=== PATIENT | female | born 1970 | race African-American/Black ===

== ENCOUNTER 2016-10-30 19:06 | Emergency (ER) | payer OTHER ==
[2016-10-30 19:18] VITALS: BMI 31.8
--- NOTE | 2016-10-30 19:54 | PDOC ---
History of Present Illness - General Chief Complaint: Pain Stated Complaint: STOMACH PAIN Time Seen by Provider: 10/30/16 19:29 History Source: Patient Exam Limitations: No Limitations - History of Present Illness Initial Comments: 10/31/16 00:44 46-year-old female presents to the emergency department complaining of epigastric abdominal discomfort 7 hours. Pain is described as 7/10 sharp intermittent discomfort which radiates to the back going around the right side without fever, chills, nausea, vomiting, dizziness, lightheadedness, headache, weakness diarrhea, chest pain, shortness of breath, flank pains, urinary symptoms. Patient also complaining of 4 weeks of vaginal bleeding and is described as a heavy flow. 10/31/16 00:49 Past History - Past Medical History Allergies/Adverse Reactions: Allergies Allergy/AdvReac Type Severity Reaction Status Date / Time nitrofurantoin Allergy Severe Swelling Verified 10/30/16 19:14 [From Macrobid] Home Medications: Ambulatory Orders Lisinopril [Prinivil -] 40 mg PO DAILY 07/19/15 Anemia: No Asthma: No Cancer: No Cardiac Disorders: No CVA: No COPD: No CHF: No Dementia: No Diabetes: Yes (gestational) GI Disorders: No Disorders: No HTN: Yes Hypercholesterolemia: No Liver Disease: No Seizures: No Thyroid Disease: No - Surgical History Abdominal Surgery: Yes (LAP BAND -2013) Appendectomy: No Cardiac Surgery: No Cholecystectomy: No GI Surgery: Yes (LAP BAND) Lung Surgery: No Neurologic Surgery: No Orthopedic Surgery: No - Reproductive History (#): 5 Para: 1 Spontaneous : 4 - Psycho/Social/Smoking Cessation Hx Anxiety: No Suicidal Ideation: No Smoking Status: Yes Smoking History: Current every day smoker Have you smoked in the past 12 months: No Number of Cigarettes Smoked Daily: 4 Information on smoking cessation initiated: No 'Breaking Loose' booklet given: 10/06/15 Hx Alcohol Use: No Drug/Substance Use Hx: No Substance Use Type: None Hx Substance Use Treatment: No *Physical Exam - Vital Signs Last Vital Signs Temp Pulse Resp BP Pulse Ox 98.4 F 99 H 18 135/81 100 10/30/16 19:10 10/30/16 19:10 10/30/16 19:10 10/30/16 19:10 10/30/16 19:40 ED Treatment Course - LABORATORY CBC & Chemistry Diagram: 10/30/16 20:14 10/30/16 20:14 - RADIOLOGY Radiograph Interpretation: 10/31/16 00:05 US abd: Course liver echotexture, possibly steatosis. Gallbladder sludge. No cholelithiasis or acute cholecystitis. Unremarkable right kidney and visualized aorta and pancreas. No biliary dilatation. 10/31/16 00:46 Enlarged left ovary containing a 2.4 cm dominant follicle, consider further evaluation with ultrasound. Leiomyomatous uterus. Trace physiological free fluid right adnexal. Gastric band device. No bowel obstruction, colitis, diverticulitis or free air. Normal appendix. Unremarkable pancreas and kidneys. Progress Note - Progress Note Progress Note: 0050hrs: Spoke to Dr. Hameed/pt's WATERSHED MANAGER, states to give Provera 10mg 1 tab po qd x7d. Dr. Hameed req pt call her office on Tuesday to schedule a procedure. Medical Decision Making - Medical Decision Making 10/31/16 00:51 Spoke to WATERSHED MANAGER/Dr. Hameed who states rx provera 10mg 1 tab po qd x7d and f/u this week. Pt appears well without dizziness/lightheadedness, weakness. Pt wishes to be d/c vs admission. *DC/Admit/Observation/Transfer Diagnosis at time of Disposition: Vaginal bleeding Anemia Qualifiers: Anemia type: other cause Other causes of anemia: other cause, not classified Qualified Code(s): D64.89 - Other specified anemias Abdominal pain Qualifiers: Abdominal location: epigastric Qualified Code(s): R10.13 - Epigastric pain - Discharge Dispostion Disposition: HOME Condition at time of disposition: Guarded Admit: No - Referrals Referrals: Neville Eid MD [Primary Care Provider] - Maddison Hameed DO [Staff Physician] - - Patient Instructions Printed Discharge Instructions: DI for Vaginal Bleeding, DI for Abdominal Pain- Adult Additional Instructions: Follow up with / your Clerical Car Checker Call Dr. Hameed's office [phone] on Tuesday morning for an immediate appointment You will need to have a procedure done to control your bleeding You will be placed on Provera 10mg 1 tablet a day for 7 days to control the vaginal bleed Increase fluid Rest Return back to the ER for severe/persistent/worsening symptoms
[2016-10-30 20:22] LABS: BASOPHIL 0.6 % (0-2.0); EOSINOPHIL 1.9 % (0-4.5); MCHC 29.6 g/dl (32.0-36.0); MEAN PLT VOLUME 7.4 fl (7.5-11.1); NEUTROPHILS 63.3 % (42.8-82.8); PLATELET COUNT 208 K/MM3 (134-434); RDW 17.1 % (11.6-15.6); WHITE BLOOD COUNT 6.8 K/mm3 (4.0-10.0)
--- NOTE | 2016-10-30 20:26 | PDOC ---
*Physical Exam - Vital Signs Last Vital Signs Temp Pulse Resp BP Pulse Ox 98.4 F 99 H 18 135/81 100 10/30/16 19:10 10/30/16 19:10 10/30/16 19:10 10/30/16 19:10 10/30/16 19:40 ED Treatment Course - LABORATORY CBC & Chemistry Diagram: 10/30/16 20:14 10/30/16 20:14 Medical Decision Making - Medical Decision Making 10/30/16 20:25 Pt seen by Midlevel Provider She is a 46 yo F p/w epigastric pain x 1 week Laboratory Tests 10/30/16 20:14 WBC 6.8 Hgb 7.2 L D Hct 24.3 L D Plt Count 208 D Pt severely anemic Apparently, pt has had 1 month of vaginal bleeding She has had not chest pain, palpitations, dizziness Ancillary studies reviewed 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 At this time, pt does not require transfusion PT denies melanotic stools (?gastritis, ulcer) Pt to follow up with PMD I agree with plan as outlined by Midlevel Provider *DC/Admit/Observation/Transfer Diagnosis at time of Disposition: Anemia, Abdominal pain, Vaginal bleeding - Discharge Dispostion Disposition: HOME - Prescriptions Prescriptions: Medroxyprogesterone Acetate [Provera] 10 mg PO DAILY #7 tablet - Referrals Referrals: Maddison Hameed DO [Staff Physician] - Neville Eid MD [Primary Care Provider] - - Patient Instructions Printed Discharge Instructions: DI for Abdominal Pain-Adult, DI for Vaginal Bleeding Additional Instructions: Follow up with / your Composing Room Supervisor Call Dr. Hameed's office [phone] on Tuesday morning for an immediate appointment You will need to have a procedure done to control your bleeding You will be placed on Provera 10mg 1 tablet a day for 7 days to control the vaginal bleed Increase fluid Rest Return back to the ER for severe/persistent/worsening symptoms
[2016-10-30 20:34] LABS: MCH 18.4 pg (25.7-33.7)
[2016-10-30 20:42] LABS: ALBUMIN 3.8 g/dl (3.4-5.0); AMYLASE 109 U/L (25-115); ANION GAP 9 (8-16); CALCIUM 8.5 mg/dL (8.5-10.1); CO2 28 mmol/L (21-32); COCKROFT - GAULT 101.7365; CREATININE 0.9 mg/dL (0.55-1.02); GLUCOSE,RANDOM 107 mg/dL (74-106); SGOT/AST 14 U/L (15-37); SGPT/ALT 23 U/L (12-78)
[2016-10-30 20:44] LABS: ALK PHOS 64 U/L (45-117); BILIRUBIN,TOTAL 0.2 mg/dL (0.2-1.0); TOT PROT 7.5 g/dl (6.4-8.2)
[2016-10-30] MEDS ORDERED: ONDANSETRON 4 MG/2 ML VIAL IVPUSH ONE (21:16)
[2016-10-30] MEDS ORDERED: ONDANSETRON 4 MG/2 ML VIAL ONE (21:36)
[2016-10-30 21:44] LABS: URINE APPEARANCE CLEAR; URINE BILIRUBIN NEGATIVE (NEGATIVE); URINE COLOR YELLOW; URINE GLUCOSE (UA) NEGATIVE (NEGATIVE); URINE KETONE NEGATIVE (NEGATIVE); URINE NITRITE POSITIVE (NEGATIVE); URINE PROTEIN NEGATIVE (NEGATIVE); URINE UROBILINOGEN NEGATIVE E.U./dl (0.2-1.0)
[2016-10-30 21:46] LABS: URINE BLOOD 3+ (NEGATIVE); URINE LEUK ESTERASE 1+ (NEGATIVE)
[2016-10-30 21:51] LABS: URINE BACTERIA RARE /hpf (NONE SEEN); URINE HYALINE CAST 1 /lpf; URINE MUCUS MODERATE; URINE RBC 298 /hpf (0-3); URINE WBC 9 /hpf (3-5)
[2016-10-30 21:57] LABS: HYPOCHROMIA 3+; MICROCYTOSIS 2+; POLYCHROMASIA 1+
[2016-10-31] MEDS ORDERED: PANTOPRAZOLE SODIUM 40 MG in SODIUM CHLORIDE 100 ML IVPB ONE (00:42)
[2016-10-31] MEDS ORDERED: PANTOPRAZOLE 40 MG TABLET (FP) PO ONE (02:04)
[2016-10-31] MEDS ORDERED: PANTOPRAZOLE 40 MG TABLET (FP) ONE (02:11)
[2016-10-31 02:20] VITALS: BP 130/80; PULSE 89; TEMP 98.2
--- NOTE | 2016-10-31 14:22 | PDOC ---
Patient Follow-up (Call Back) - Post ED Follow - Up Disposition at time of original discharge: HOME - Disposition Additional Instructions/Notes: Received call from radiologist MD Rahman re: gallbladder polyp. Called patient and advised she needs f/u with GI within 2 weeks. Patient verbalized understanding and states that her GI MD is Dr. Eller, and she states she will follow up with him as advised.
== END 2016-10-31 02:21 | disposition home or self-care (01) ==
LOC: JER 19:06
PROC: 3E033GC Introduction of Other Therapeutic Substance into Peripheral Vein, Percutaneous Approach (ICD-10-PCS; principal; 2016-10-30)
DX: N93.8 Other specified abnormal uterine and vaginal bleeding (principal); D64.89 Other specified anemias; R10.13 Epigastric pain; I10 Essential (primary) hypertension; Z86.32 Personal history of gestational diabetes; F17.210 Nicotine dependence, cigarettes, uncomplicated
CPT/HCPCS: 36415; 74177-TC; 76705-TC; 80053; 81003; 81015; 82150; 83690; 85025; 99282-25

== ENCOUNTER 2016-11-15 20:49 | Inpatient (IN) | payer OTHER ==
[2016-11-15 21:11] VITALS: BMI 32.9
[2016-11-15 23:12] LABS: BASOPHIL 0.4 % (0-2.0); MCHC 28.7 g/dl (32.0-36.0); MEAN CELL VOLUME 61.4 fl (80-96); MEAN PLT VOLUME 7.7 fl (7.5-11.1); PLATELET COUNT 557 K/MM3 (134-434); RDW 17.6 % (11.6-15.6); WHITE BLOOD COUNT 8.2 K/mm3 (4.0-10.0)
--- NOTE | 2016-11-15 23:13 | PDOC ---
History of Present Illness - General Chief Complaint: Revisit, Lab Variance Stated Complaint: PCP SENT/ANEMIA/SOB Time Seen by Provider: 11/15/16 22:33 - History of Present Illness Initial Comments: 11/15/16 23:02 CHIEF COMPLAINT: anemia HISTORY OF PRESENT ILLNESS: 46 yo F with hx of HTN, leimyoma of uterus, and anemia presents to ED for "transfusion before getting my hysterectomy on ." Patient states that her PCP Dr. Eid and OBGYN Dr. Hameed both told her to come in for blood transfusions prior to her operation on . She currently complains of headache and dizziness accompanied by nausea. She states that this usually happens when she is sick from her anemia. No recent travel or sick contacts. PAST MEDICAL HISTORY: Denies past medical history FAMILY HISTORY: Denies SOCIAL HISTORY: Denies tobacco, alcohol, illicit drug use. SURGICAL HISTORY: Denies ALLERGIES: nitrofurantoin REVIEW OF SYSTEMS General/Constitutional: Denies fever or chills. Denies weakness, weight change. HEENT: Denies change in vision. Denies ear pain or discharge. Denies sore throat. Cardiovascular: Denies chest pain or shortness of breath. Respiratory: Denies cough, wheezing, or hemoptysis. Gastrointestinal: Denies nausea, vomiting, diarrhea or constipation. Denies rectal bleeding. Genitourinary: Denies dysuria, frequency, or change in urination. Musculoskeletal: Denies joint or muscle swelling or pain. Denies neck or back pain. Skin and breasts: Denies rash or easy bruising. Neurologic: Dizziness, headache. Denies loss of consciousness, or loss of sensation. PHYSICAL EXAM General Appearance: Well-appearing, appropriately dressed. No apparent distress. HEENT: EOMI, PERRLA. No conjunctival pallor. No photophobia, scleral icterus. Neck: Supple. Trachea midline. No tenderness, rigidity, carotid bruit, stridor , lymphadenopathy, or thyromegaly. Respiratory/Chest: Lungs CTAB. Cardiovascular: RRR. S1, S2. Gastrointestinal/Abdominal: Normal bowel sounds. Abdomen soft, non-distended. No tenderness or rebound tenderness. No organomegaly, pulsatile mass, guarding , hernia, hepatomegaly, splenomegaly. Musculoskeletal/Extremities: Normal inspection. FROM of all extremities, normal capillary refill. No tenderness to extremities, pedal edema, swelling, erythema or deformity. Integumentary: Appropriate color, dry, warm. No cyanosis, erythema, jaundice or rash Neurologic: laundry supervisor II-XII intact. Fully oriented, alert. Appropriate mood/affect. Motor strength 5/5. No appreciable EOM palsy, facial droop or sensory deficit. 11/15/16 23:35 Past History - Past Medical History Allergies/Adverse Reactions: Allergies Allergy/AdvReac Type Severity Reaction Status Date / Time nitrofurantoin Allergy Severe Swelling Verified 11/15/16 21:08 [From Macrobid] Home Medications: Ambulatory Orders Lisinopril [Prinivil -] 40 mg PO DAILY 07/19/15 Medroxyprogesterone Acetate [Provera] 10 mg PO DAILY #7 tablet 10/31/16 Anemia: No Asthma: No Cancer: No Cardiac Disorders: No CVA: No COPD: No CHF: No Dementia: No Diabetes: Yes (gestational) GI Disorders: No Disorders: No HTN: Yes Hypercholesterolemia: No Liver Disease: No Seizures: No Thyroid Disease: No - Surgical History Abdominal Surgery: Yes (LAP BAND -2013) Appendectomy: No Cardiac Surgery: No Cholecystectomy: No GI Surgery: Yes (LAP BAND) Lung Surgery: No Neurologic Surgery: No Orthopedic Surgery: No - Reproductive History (#): 5 Para: 1 Spontaneous : 4 - Psycho/Social/Smoking Cessation Hx Anxiety: No Suicidal Ideation: No Smoking Status: Yes Smoking History: Current every day smoker Have you smoked in the past 12 months: No Number of Cigarettes Smoked Daily: 4 Information on smoking cessation initiated: No 'Breaking Loose' booklet given: 10/06/15 Hx Alcohol Use: No Drug/Substance Use Hx: No Substance Use Type: None Hx Substance Use Treatment: No *Physical Exam - Vital Signs Last Vital Signs Temp Pulse Resp BP Pulse Ox 99.2 F 90 18 155/73 100 11/15/16 21:09 11/15/16 21:09 11/15/16 21:09 11/15/16 21:09 11/15/16 21:09 ED Treatment Course - LABORATORY CBC & Chemistry Diagram: 11/15/16 23:05 11/15/16 23:05 Medical Decision Making - Medical Decision Making 11/15/16 23:13 46 yo F with hx of HTN and anemia presents to ED for "transfusion before getting my hysterectomy on ." -CBC, CMP, PT/INR, T&S 11/15/16 23:38 Labs: Hg 6.8, Hct 23.6, platelets 557 -2 units PRBC Discussed case with covering physician MD Teixeira, who accepts patient for inpatient admission. *DC/Admit/Observation/Transfer Diagnosis at time of Disposition: Anemia Qualifiers: Anemia type: iron deficiency Iron deficiency anemia type: chronic blood loss Qualified Code(s): D50.0 - Iron deficiency anemia secondary to blood loss ( chronic) - Discharge Dispostion Admit: Yes
[2016-11-15 23:15] LABS: MCH 17.7 pg (25.7-33.7)
[2016-11-15 23:27] LABS: INR 1.15 (0.82-1.09); PROTHROMBIN TIME (PATIENT) 12.7 SEC (9.98-11.88)
--- NOTE | 2016-11-15 23:35 | PDOC ---
*Physical Exam - Vital Signs Last Vital Signs Temp Pulse Resp BP Pulse Ox 99.2 F 90 18 155/73 100 11/15/16 21:09 11/15/16 21:09 11/15/16 21:09 11/15/16 21:09 11/15/16 21:09 ED Treatment Course - LABORATORY CBC & Chemistry Diagram: 11/15/16 23:05 11/15/16 23:05 - ADDITIONAL ORDERS Additional order review: Laboratory Results 11/15/16 23:05 Crossmatch See Detail 11/15/16 23:05 RBC 3.84 MCV 61.4 L MCHC 28.7 L RDW 17.6 H MPV 7.7 Neutrophils % 66.0 Lymphocytes % 22.8 Monocytes % 9.8 Eosinophils % 1.0 Basophils % 0.4 Medical Decision Making - Medical Decision Making 11/15/16 23:33 agree with care from CRISTAL Miguel. Pt presents for low H/H requiring transfusion. Both pt pcp and Second Helper are aware. Pt to be admitted to [facility]. *DC/Admit/Observation/Transfer Diagnosis at time of Disposition: Anemia
[2016-11-15 23:38] LABS: ALBUMIN 3.4 g/dl (3.4-5.0); ALK PHOS 60 U/L (45-117); ANION GAP 6 (8-16); BILIRUBIN,TOTAL 0.2 mg/dL (0.2-1.0); CALCIUM 8.2 mg/dL (8.5-10.1); CO2 29 mmol/L (21-32); CREATININE 0.8 mg/dL (0.55-1.02); GLUCOSE,RANDOM 156 mg/dL (74-106); SGOT/AST 12 U/L (15-37); SGPT/ALT 21 U/L (12-78)
[2016-11-15 23:40] LABS: ANISOCYTOSIS 1+; HYPOCHROMIA 2+; MICROCYTOSIS 1+; PLATELET ESTIMATE INCREASED (NORMAL); POLYCHROMASIA 1+
[2016-11-16] MEDS ORDERED: KETOROLAC TROMETHAMINE 30 MG/1 ML VIAL IVPUSH ONE (00:15)
[2016-11-16] MEDS ORDERED: SODIUM CHLORIDE 0.9% 1000 ML INFUS.BAG IV ONE (00:15)
[2016-11-16] MEDS ORDERED: KETOROLAC TROMETHAMINE 30 MG/1 ML VIAL ONE (00:29)
--- NOTE | 2016-11-16 11:07 | HP ---
Admitting History and Physical - Primary Care Physician PCP: Neville Eid - Admission Chief Complaint: anemia History of Present Illness: ER HISTORY - History of Present Illness Initial Comments: 11/15/16 23:02 CHIEF COMPLAINT: anemia HISTORY OF PRESENT ILLNESS: 46 yo F with hx of HTN, leimyoma of uterus, and anemia presents to ED for "transfusion before getting my hysterectomy on ." Patient states that her PCP Dr. Eid and OBGYN Dr. Hameed both told her to come in for blood transfusions prior to her operation on . She currently complains of headache and dizziness accompanied by nausea. She states that this usually happens when she is sick from her anemia. No recent travel or sick contacts. Pt examined in ER, Pt feels better after receiving one unit PRBC She has hysterectomy scheduled on 2 days and was advised to get blood transfusion prior to surgery Currently has no vaginal bleeding Has been feeling lightheaded , dizzy and weak due to anemia. History Source: Patient Limitations to Obtaining History: No Limitations - Past Medical History Cardiovascular: Yes: HTN Reproductive: Yes: Fibroids ...LMP: 06/03/15 Heme/Onc: Yes: Anemia - Smoking History Smoking history: Current every day smoker Have you smoked in the past 12 months: No Aproximately how many cigarettes per day: 4 - Alcohol/Substance Use Hx Alcohol Use: No Home Medications - Allergies Allergies/Adverse Reactions: Allergies Allergy/AdvReac Type Severity Reaction Status Date / Time nitrofurantoin Allergy Severe Swelling Verified 11/18/16 07:22 [From Macrobid] - Home Medications Home Medications: Ambulatory Orders Lisinopril [Prinivil] 40 mg PO DAILY 07/19/15 Ferrous Sulfate [Feosol] 325 mg PO BID 11/17/16 Review of Systems - Review of Systems Constitutional: reports: Weakness. denies: Chills, Fever Cardiovascular: reports: Palpitations. denies: Chest Pain Respiratory: reports: SOB Physical Examination Vital Signs: Vital Signs Temperature 97.7 F 11/16/16 06:12 Pulse Rate 77 11/16/16 06:12 Respiratory Rate 16 11/16/16 06:12 Blood Pressure 114/65 11/16/16 06:12 O2 Sat by Pulse Oximetry (%) 98 11/16/16 10:40 Constitutional: Yes: No Distress, Calm, Pallor Cardiovascular: Yes: Regular Rate and Rhythm Respiratory: Yes: CTA Bilaterally Gastrointestinal: Yes: Normal Bowel Sounds, Soft, Abdomen, Obese. No: Distention, Tenderness Edema: No Psychiatric: Yes: Alert, Oriented Labs: Laboratory Last Values WBC 7.3 K/mm3 (4.0-10.0) 11/17/16 06:20 RBC 4.55 M/mm3 (3.60-5.2) 11/17/16 06:20 Hgb 9.3 GM/dL (10.7-15.3) L D 11/17/16 06:20 Hct 30.1 % (32.4-45.2) L D 11/17/16 06:20 MCV 66.2 fl (80-96) L 11/17/16 06:20 MCHC 30.8 g/dl (32.0-36.0) L 11/17/16 06:20 RDW 22.1 % (11.6-15.6) H D 11/17/16 06:20 Plt Count 493 K/MM3 (134-434) H 11/17/16 06:20 MPV 7.7 fl (7.5-11.1) 11/17/16 06:20 Neutrophils % 63.9 % (42.8-82.8) 11/17/16 06:20 Lymphocytes % 22.8 % (8-40) 11/17/16 06:20 Monocytes % 11.4 % (3.8-10.2) H 11/17/16 06:20 Eosinophils % 1.4 % (0-4.5) 11/17/16 06:20 Basophils % 0.5 % (0-2.0) 11/17/16 06:20 Platelet Estimate Increased (NORMAL) 11/15/16 23:05 Platelet Comment No clumping noted 11/15/16 23:05 Polychromasia 1+ 11/15/16 23:05 Hypochromic-Microcytic 2+ 11/15/16 23:05 Anisocytosis 1+ 11/15/16 23:05 Microcytosis 1+ 11/15/16 23:05 INR 1.15 (0.82-1.09) H 11/15/16 23:05 Sodium 140 mmol/L (136-145) 11/17/16 06:20 Potassium 4.4 mmol/L (3.5-5.1) 11/17/16 06:20 Chloride 106 mmol/L (98-107) 11/17/16 06:20 Carbon Dioxide 27 mmol/L (21-32) 11/17/16 06:20 Anion Gap 7 (8-16) L 11/17/16 06:20 BUN 9 mg/dL (7-18) 11/17/16 06:20 Creatinine 0.7 mg/dL (0.55-1.02) 11/17/16 06:20 Creat Clearance w eGFR > 60 (>60) 11/17/16 06:20 Random Glucose 85 mg/dL (74-106) D 11/17/16 06:20 Calcium 8.4 mg/dL (8.5-10.1) L 11/17/16 06:20 Total Bilirubin 0.3 mg/dL (0.2-1.0) D 11/17/16 06:20 AST 12 U/L (15-37) L 11/17/16 06:20 ALT 21 U/L (12-78) 11/17/16 06:20 Alkaline Phosphatase 58 U/L (45-117) 11/17/16 06:20 Total Protein 6.6 g/dl (6.4-8.2) 11/17/16 06:20 Albumin 3.3 g/dl (3.4-5.0) L 11/17/16 06:20 Blood Type AB POSITIVE 11/16/16 00:56 Antibody Screen Negative 11/16/16 00:56 Crossmatch See Detail 11/15/16 23:05 Imaging - Results EKG: Image Reviewed (NSR) Problem List - Problems (1) Anemia Code(s): D64.9 - ANEMIA, UNSPECIFIED Qualifiers: Anemia type: iron deficiency Iron deficiency anemia type: chronic blood loss Qualified Code(s): D50.0 - Iron deficiency anemia secondary to blood loss (chronic) (2) Fibroid Code(s): D25.9 - LEIOMYOMA OF UTERUS, UNSPECIFIED (3) Vaginal bleeding Code(s): N93.9 - ABNORMAL UTERINE AND VAGINAL BLEEDING, UNSPECIFIED Assessment/Plan Plan S/p 1 unit PRBC, will need one more unit symptomatically better will admit for observation Check CBC afterwards and will dc her home if stable. She will then come on for surgery may continue with HTN medication
[2016-11-16 14:24] VITALS: TEMP 98.8
--- NOTE | 2016-11-16 17:10 | EKG ---
Test Reason : Blood Pressure : / mmHG Vent. Rate : 091 BPM Atrial Rate : 091 BPM P-R Int : 162 ms QRS Dur : 080 ms QT Int : 364 ms P-R-T Axes : 041 040 023 degrees QTc Int : 447 ms NORMAL SINUS RHYTHM NORMAL ECG WHEN COMPARED WITH ECG OF 19-MAR-2016 17:44, NO SIGNIFICANT CHANGE WAS FOUND Confirmed by GINA GIL MD ([id number]) on 11/16/2016 5:10:01 PM Referred By: Confirmed By:GINA GIL MD
[2016-11-16] MEDS ORDERED: ACETAMINOPHEN 325 MG TABLET (FP) PO PRN (20:02)
[2016-11-16] MEDS ORDERED: ACETAMINOPHEN 325 MG TABLET (FP) ONE (20:43)
[2016-11-16] MEDS ORDERED: LISINOPRIL 20 MG TABLET (FP) ONE (20:44)
[2016-11-16] MEDS ORDERED: LISINOPRIL 20 MG TABLET (FP) PO SCH (22:00)
[2016-11-17 07:14] LABS: BASOPHIL 0.5 % (0-2.0); EOSINOPHIL 1.4 % (0-4.5); MCH 20.4 pg (25.7-33.7); MCHC 30.8 g/dl (32.0-36.0); MEAN CELL VOLUME 66.2 fl (80-96); MEAN PLT VOLUME 7.7 fl (7.5-11.1); NEUTROPHILS 63.9 % (42.8-82.8); PLATELET COUNT 493 K/MM3 (134-434); RDW 22.1 % (11.6-15.6); WHITE BLOOD COUNT 7.3 K/mm3 (4.0-10.0)
[2016-11-17 07:41] LABS: ALBUMIN 3.3 g/dl (3.4-5.0); ALK PHOS 58 U/L (45-117); ANION GAP 7 (8-16); BILIRUBIN,TOTAL 0.3 mg/dL (0.2-1.0); CALCIUM 8.4 mg/dL (8.5-10.1); CO2 27 mmol/L (21-32); COCKROFT - GAULT 130.8065; CREATININE 0.7 mg/dL (0.55-1.02); GLUCOSE,RANDOM 85 mg/dL (74-106); SGOT/AST 12 U/L (15-37); SGPT/ALT 21 U/L (12-78); TOT PROT 6.6 g/dl (6.4-8.2)
--- NOTE | 2016-11-17 08:41 | PN ---
Progress Note, Physician Chief Complaint: no distress s/p 2 units PRBC No vaginal bleeding no dizziness, lightheadedness No chest pain or SOB - Current Medication List Current Medications: Active Medications Acetaminophen (Tylenol -) 650 mg PO Q6H PRN PRN Reason: FEVER OR PAIN Last Admin: 11/16/16 21:03 Dose: 650 mg Lisinopril (Prinivil) 40 mg PO HS BILL Last Admin: 11/16/16 21:04 Dose: 40 mg - Objective Vital Signs: Vital Signs Temperature 98.8 F 11/16/16 14:20 Pulse Rate 84 11/17/16 07:30 Respiratory Rate 19 11/17/16 07:30 Blood Pressure 155/73 11/17/16 07:30 O2 Sat by Pulse Oximetry (%) 100 11/17/16 07:30 Constitutional: Yes: No Distress, Calm Cardiovascular: Yes: Regular Rate and Rhythm Respiratory: Yes: CTA Bilaterally Gastrointestinal: Yes: Normal Bowel Sounds, Soft. No: Distention, Tenderness Edema: No Labs: CBC, BMP 11/17/16 06:20 11/17/16 06:20 INR, PTT INR 1.15 (0.82-1.09) H 11/15/16 23:05 Problem List - Problems (1) Anemia Code(s): D64.9 - ANEMIA, UNSPECIFIED Qualifiers: Anemia type: iron deficiency Iron deficiency anemia type: chronic blood loss Qualified Code(s): D50.0 - Iron deficiency anemia secondary to blood loss (chronic) (2) Vaginal bleeding Code(s): N93.9 - ABNORMAL UTERINE AND VAGINAL BLEEDING, UNSPECIFIED (3) Fibroid Code(s): D25.9 - LEIOMYOMA OF UTERUS, UNSPECIFIED Assessment/Plan Plan S/p 2 units PRBC symptomatically better No complaints HB is better Pt is scheduled for hysterectomy tomorrow Pt is medically cleared to go for surgery She is stable for dc home
[2016-11-17 12:19] VITALS: BP 151/91; PULSE 70
--- NOTE | 2016-11-17 19:09 | DS ---
Physical Examination Vital Signs: Vital Signs Temperature 98.8 F 11/16/16 14:20 Pulse Rate 70 11/17/16 11:30 Respiratory Rate 16 11/17/16 11:30 Blood Pressure 151/91 11/17/16 11:30 O2 Sat by Pulse Oximetry (%) 100 11/17/16 11:30 Labs: CBC, BMP 11/17/16 06:20 11/17/16 06:20 Discharge Summary Reason For Visit: ANEMIA Hospital Course: refer to today's progress note Condition: Good - Instructions Referrals: Neville Eid MD [Primary Care Provider] - Disposition: HOME - Home Medications Comprehensive Discharge Medication List: Ambulatory Orders Lisinopril [Prinivil] 40 mg PO DAILY 07/19/15 Ferrous Sulfate [Feosol] 325 mg PO BID 11/17/16
== END 2016-11-17 11:49 | disposition home or self-care (01) | DRG 812 ==
LOC: JER 20:49 → JERBED 23:59
PROVIDERS: ADMIT Internal Medicine; ATTEND Internal Medicine
PROC: 30233N1 Transfusion of Nonautologous Red Blood Cells into Peripheral Vein, Percutaneous Approach (ICD-10-PCS; principal; 2016-11-15)
DX: D50.0 Iron deficiency anemia secondary to blood loss (chronic) (principal); D25.9 Leiomyoma of uterus, unspecified; I10 Essential (primary) hypertension; F17.210 Nicotine dependence, cigarettes, uncomplicated; Z98.84 Bariatric surgery status
CPT/HCPCS: 36415; 36430; 80053; 85025; 85610; 86850; 86900; 86901; 86922; 93005; 93010; 99283-25; P9038; P9058

== ENCOUNTER 2016-11-18 06:19 | Day surgery (SDC) | payer OTHER ==
[2016-11-17 12:45] VITALS: BMI 32.9
[2016-11-18] MEDS ORDERED: SUCCINYLCHOLINE CHLORIDE 200 MG/10 ML VIAL ONE ×2 (07:51→11:33)
[2016-11-18] MEDS ORDERED: MIDAZOLAM HCL 2 MG/2 ML SINGLE DOSE VIAL ONE (07:51)
[2016-11-18] MEDS ORDERED: PROPOFOL 20 ML ONE ×2 (07:51→11:33)
[2016-11-18] MEDS ORDERED: ROCURONIUM BROMIDE 50 MG/5 ML VIAL ONE ×2 (07:52→08:44)
[2016-11-18] MEDS ORDERED: ceFAZolin SODIUM 1 GM VIAL IVPB ONE (08:17)
[2016-11-18] MEDS ORDERED: CEFAZOLIN 2 GM/D5W 50 ML IVPB ONE (08:45)
[2016-11-18] MEDS ORDERED: NEOSTIGMINE METHYLSULFATE 0.5 MG/ML - 10 ML MDV ONE (10:05)
[2016-11-18] MEDS ORDERED: GLYCOPYRROLATE 0.2 MG/1 ML VIAL ONE (10:06)
[2016-11-18] MEDS ORDERED: KETOROLAC TROMETHAMINE 30 MG/1 ML VIAL ONE (10:08)
[2016-11-18] MEDS ORDERED: DEXAMETHASONE SOD PHOSPHATE 4 MG/1 ML VIAL ONE (10:08)
[2016-11-18] MEDS ORDERED: oxyCODONE HCL 5 MG TABLET PO PRN ×2 (10:27→10:28)
--- NOTE | 2016-11-18 10:31 | HP ---
History & Physical Update - History History: No Change - Physical Physical: No Change - Assessment Assessment: No Change - Plan Plan: No Change (AUB and fibroids for robotic hysterectomy)
--- NOTE | 2016-11-18 10:32 | OP ---
Operative Note - Note: Operative Date: 11/18/16 Pre-Operative Diagnosis: AUB, fibroids Operation: robotic laparoscopic total hysterectomy and left ovarian cystectomy Findings: left ovarian cyst and torsion noted no fallopian tubes appreciated Post-Operative Diagnosis: Same as Pre-op Surgeon: Maddison Hameed Paint Spray Tender: Tiara Gallegos Anesthesiologist/CONCERT PROMOTER: Asia Johnston MD Anesthesia: General Specimens Removed: uterus , cervix, left ovarian cyst wall Estimated Blood Loss (mls): 25 Operative Report Dictated: Yes
[2016-11-18] MEDS ORDERED: ONDANSETRON 4 MG/2 ML VIAL IVPUSH PRN (10:38)
[2016-11-18] MEDS ORDERED: HYDROmorphone HCL CARPU-JECT 2 MG/1 ML DISP.SYRIN ONE (11:42)
[2016-11-18] MEDS: HYDROmorphone HCL CARPU-JECT 1 MG/1 ML DISP.SYRIN IVPUSH PRN (11:45)
[2016-11-18] MEDS ORDERED: IBUPROFEN 800 MG/8 ML IJ IVPB ONE (13:18)
[2016-11-18] MEDS: LACTATED RINGERS SOLUTION 1,000 ML IV SCH ×2 (14:09→20:19)
[2016-11-18] MEDS ORDERED: IBUPROFEN 800 MG/8 ML IJ IVPB PRN (16:00)
[2016-11-18] MEDS: CEFAZOLIN 1 GM/D5W 50 ML IVPB SCH (18:04)
[2016-11-18] MEDS: IBUPROFEN 800 MG/8 ML IJ IVPB PRN (20:18)
[2016-11-18] MEDS ORDERED: LISINOPRIL 20 MG TABLET (FP) PO SCH (22:00)
[2016-11-19] MEDS ORDERED: CEFAZOLIN (PRE-DOCKED) 50 ML IVPB ONE (01:27)
[2016-11-19] MEDS: CEFAZOLIN 1 GM/D5W 50 ML IVPB SCH (01:36)
[2016-11-19] MEDS: IBUPROFEN 800 MG/8 ML IJ IVPB PRN (01:36)
[2016-11-19] MEDS: HYDROmorphone HCL CARPU-JECT 1 MG/1 ML DISP.SYRIN IVPUSH PRN (05:38)
[2016-11-19] MEDS: LACTATED RINGERS SOLUTION 1,000 ML IV SCH (05:41)
--- NOTE | 2016-11-19 08:34 | PN ---
Progress Note (short form) - Note Progress Note: ANESTHESIOLOGY POST-OP CHECK 46F s/p laparoscopic robotic hysterectomy under general anesthesia POD #1. No acute complaints. Pain 6-7/10 and tolerable. Tolerating PO liquids. Denies N/V. Not yet OOB, henley in place. Vital Signs Temperature 98.4 F 11/19/16 08:17 Pulse Rate 60 11/19/16 08:17 Respiratory Rate 18 11/19/16 08:17 Blood Pressure 139/73 11/19/16 08:17 O2 Sat by Pulse Oximetry (%) 100 11/18/16 21:00 Active Medications Fentanyl (Sublimaze Injection -) 50 mcg IVPUSH [id number] PRN PRN Reason: PAIN Stop: 11/21/16 10:39 Last Admin: 11/18/16 11:15 Dose: 50 mcg Hydromorphone HCl (Dilaudid Injection -) 1 mg IVPUSH Q4H PRN PRN Reason: PAIN Last Admin: 11/19/16 05:38 Dose: 1 mg Lactated Ringer's (Lactated Ringers Solution) 1,000 mls @ 125 mls/hr IV ASDIR BILL Last Admin: 11/19/16 05:41 Dose: 125 mls/hr Lisinopril (Prinivil) 40 mg PO HS [facility] Last Admin: 11/18/16 22:20 Dose: 40 mg Oxycodone HCl (Roxicodone -) 10 mg PO Q4H PRN PRN Reason: PAIN LEVEL 6-10 Last Admin: 11/19/16 08:30 Dose: 10 mg Oxycodone HCl (Roxicodone -) 5 mg PO Q4H PRN PRN Reason: PAIN Gen: awake, alert No apparent anesthesia complications. Pain well controlled. Continue management as per primary team
[2016-11-19 08:55] LABS: BASOPHIL 0.4 % (0-2.0); EOSINOPHIL 0.1 % (0-4.5); MCH 20.5 pg (25.7-33.7); MCHC 30.8 g/dl (32.0-36.0); MEAN CELL VOLUME 66.6 fl (80-96); MEAN PLT VOLUME 7.6 fl (7.5-11.1); NEUTROPHILS 80.5 % (42.8-82.8); PLATELET COUNT 441 K/MM3 (134-434); RDW 23.8 % (11.6-15.6); WHITE BLOOD COUNT 14.1 K/mm3 (4.0-10.0)
--- NOTE | 2016-11-19 09:53 | PN ---
Progress Note, Physician Chief Complaint: Pt seen/evaluated and doing well. Pain controlled. Tolerating diet. Ambulating, passing flatus. No voiding yet. Denies CP/SOB/F/C/CORONADO or vaginal bleeding. - Current Medication List Current Medications: Active Medications Fentanyl (Sublimaze Injection -) 50 mcg IVPUSH [id number] PRN PRN Reason: PAIN Stop: 11/21/16 10:39 Last Admin: 11/18/16 11:15 Dose: 50 mcg Hydromorphone HCl (Dilaudid Injection -) 1 mg IVPUSH Q4H PRN PRN Reason: PAIN Last Admin: 11/19/16 05:38 Dose: 1 mg Lactated Ringer's (Lactated Ringers Solution) 1,000 mls @ 125 mls/hr IV ASDIR BILL Last Admin: 11/19/16 05:41 Dose: 125 mls/hr Lisinopril (Prinivil) 40 mg PO HS [facility] Last Admin: 11/18/16 22:20 Dose: 40 mg Oxycodone HCl (Roxicodone -) 10 mg PO Q4H PRN PRN Reason: PAIN LEVEL 6-10 Last Admin: 11/19/16 08:30 Dose: 10 mg Oxycodone HCl (Roxicodone -) 5 mg PO Q4H PRN PRN Reason: PAIN - Objective Vital Signs: Vital Signs Temperature 98.4 F 11/19/16 08:17 Pulse Rate 60 11/19/16 08:17 Respiratory Rate 18 11/19/16 08:17 Blood Pressure 139/73 11/19/16 08:17 O2 Sat by Pulse Oximetry (%) 100 11/18/16 21:00 Constitutional: Yes: Well Nourished, No Distress, Calm Eyes: Yes: Conjunctiva Clear, EOM Intact HENT: Yes: Atraumatic, Normocephalic Neck: Yes: Supple, Trachea Midline Cardiovascular: Yes: Regular Rate and Rhythm Respiratory: Yes: Regular, CTA Bilaterally Gastrointestinal: Yes: Normal Bowel Sounds, Soft Extremities: Yes: WNL Edema: No Wound/Incision: Yes: Clean/Dry, Well Approximated, Sutures Intact Neurological: Yes: Alert, Oriented Psychiatric: Yes: Alert, Oriented Labs: CBC, BMP 11/19/16 08:32 Problem List - Problems (1) History of robot-assisted laparoscopic hysterectomy Code(s): Z90.710 - ACQUIRED ABSENCE OF BOTH CERVIX AND UTERUS (2) Anemia Code(s): D64.9 - ANEMIA, UNSPECIFIED Qualifiers: Anemia type: iron deficiency Iron deficiency anemia type: chronic blood loss Qualified Code(s): D50.0 - Iron deficiency anemia secondary to blood loss (chronic) Assessment/Plan 46 y/o POD#1 s/p robotic assisted laparoscopic hysterectomy - AFVSS - Hgb 9.0, stable from preop, pt asymptomatic - regular diet, PO pain meds - await voiding trial - plan for discharge home today if stable
[2016-11-19] MEDS ORDERED: LISINOPRIL 20 MG TABLET (FP) PO SCH (10:00)
[2016-11-19 10:56] LABS: PLATELET ESTIMATE INCREASED (NORMAL)
[2016-11-19 10:57] LABS: ANISOCYTOSIS 2+; HYPOCHROMIA 1+; MICROCYTOSIS 1+; POLYCHROMASIA FEW
[2016-11-19 13:26] VITALS: BP 143/87; PULSE 59; TEMP 97.7
--- NOTE | 2016-11-21 22:56 | OP ---
DATE OF OPERATION: 11/18/2016 PREOPERATIVE DIAGNOSIS: Submucosal leiomyoma and abnormal uterine bleeding. POSTOPERATIVE DIAGNOSIS: Submucosal leiomyoma and abnormal uterine bleeding. PROCEDURE: Robotic assisted laparoscopic hysterectomy and left ovarian cystectomy. SURGEON: Maddison Hameed M.D. INSTRUMENT ASSEMBLY SUPERVISOR: Tiara Gallegos M.D. ESTIMATED BLOOD LOSS: 25 mL. SPECIMEN: Included uterus and cervix sent to pathology for permanent evaluation as well as left ovarian cyst wall. COMPLICATIONS: None. COUNTS: Sponge, needle, and instrument count correct at the end of the case. BRIEF HISTORY AND PROCEDURE: Patient is a 46-year-old female who has been seen in the office with complaints of heavy vaginal bleeding for the past 30 days. The patient has been previously seen in the emergency department and was noted to have significant anemia with a hemoglobin of 6.8 and had been transfused due to her significant anemia. The patient was given options for treatment for her fibroids and abnormal bleeding, and she elected to undergo a laparoscopic hysterectomy. Consents for the procedure were signed in the office. The patient and the surgeon were mutually identified. The patient was then taken back to the operating room. The patient was admitted to [facility] on November 18, 2016, then the patient and the surgeon were mutually identified in the holding area, and the patient was taken back to the operating room and given general anesthesia by Dr. Johnston. She was prepped and draped in the dorsal lithotomy position. A Mayberry catheter was placed under sterile conditions and a hard timeout was performed. A large V-Care device was placed in the vagina around the cervix with a uterine manipulator. Next an 8-mm skin incision was created in the umbilicus and a Veress needle was placed intraabdominally. The abdomen was insufflated with CO2 gas. An extra trocar was placed inside the umbilical incision, and the camera was placed inside the abdomen. After confirmation of intraabdominal placement, 2 left sided 8-mm trocars were placed under direct visualization. Next, all instruments were inserted into the abdomen under direct visualization. Attention was first turned to the left adnexa. The patient had a prior salpingectomy, no fallopian tube was appreciated. The uteroovarian anastomosis was clamped, ligated, and cut with a vesicular device. Next, the left round ligament was clamped, ligated and cut with a vesicular device and the bladder flap anteriorly was developed starting from the left, extending to the right side, dissecting the bladder off the anterior lower uterine segment and the cervix. Next, the uterine artery was isolated and clamped and ligated and cut, and several passes to the level of the cervicovaginal junction on the left. The same process was repeated on the right side. The right uteroovarian anastomosis was clamped, ligated and cut. The right round ligament was clamped, ligated and cut, and the bladder flap was created on the right side, again insuring the bladder was dissected off the lower uterine segment and the cervix. The right uterine arteries were isolated, clamped, ligated cut, and cut with vesicular device all the way down to the level of the cervicovaginal junction. Next, the anterior colpotomy was completed with the scissors and the colpotomy was traced in the 360 degree fashion until the uterus was detached from the top of the vagina. The uterus was removed through the vagina at this time. Vagina was reapproximated using the V-Loc suture in a running lying fashion until the vaginal cuff was completely closed. Bilateral ovaries were inspected, the left ovary was noted to have approximately 3-4 cm cyst which was removed at this time. The surgical bed was cauterized to achieve hemostasis. Attention was then turned to all surgical sites which were noted to be hemostatic. Bilateral ureters which had been briefly digitalized earlier were thoroughly inspected, noted to be within normal caliber and peristalsing. There was a small amount of adhesion from the omentum to the anterior abdominal wall which were noticed in the upper abdomen. There was otherwise no other intraabdominal pathology or abnormalities. Next, all instruments were removed from the abdominal cavity under direct visualization. The abdomen was desufflated and trocars were then removed. The skin was reapproximated using 4-0 Biosyn suture as well as skin glue. All sponge, needle, and instrument counts were reported to be correct. The patient tolerated the procedure well, recovering in a stable condition in the PACU after the procedure. MADDISON HAMEED DO /[id number]
--- NOTE | 2016-11-24 11:19 | PATH ---
Surgical Pathology Report Patient Name: APOLINAR MILES [place]. Rec. #: [id number] /Age/Gender: 1970 (Age: 46) / F Account: [id number] Location: AMBULATORY SURG Taken: 11/18/2016 Received: 11/18/2016 Reported: 11/22/2016 Physicians: Maddison Hameed M.D. Specimen(s) Received A: UTERUS AND CERVIX B: LT OVARIAN CYST WALL Clinical History Leiomyoma uterus Final Diagnosis A. UTERUS AND CERVIX, HYSTERECTOMY: UTERUS AND CERVIX, 213 GRAMS, WITH LEIOMYOMATA, INACTIVE ENDOMETRIUM, AND CERVIX WITH CHRONIC INFLAMMATION. B. LEFT OVARIAN CYST WALL, EXCISION: BENIGN LUTEAL CYST. Comment: Also see [id number]. Electronically Signed Jose Alfredo Willis M.D. Gross Description A. Received in formalin labeled "uterus, cervix," is a 213 g uterus with an attached cervix and no attached adnexa. The specimen measures 11.3 cm from superior to inferior, 6.8 centimeters from left to right and 6.5 cm from anterior to posterior. The serosa is rome-hansen with focal subserosal nodules. The attached cervix measures 3.0 cm in length and averages 2.8 cm in diameter. The ectocervix is rome, smooth and glistening. The endocervix is unremarkable. The endometrial cavity measures 6.5 cm in length and 3.5 cm from cornu to cornu. There is a focal bulging submucosal nodule present in the anterior aspect of the specimen. The submucosal nodule measures 4 cm in greatest dimension. The endometrium is rome-brown and averages 0.1 cm in thickness. The myometrium displays multiple intramural nodules, measuring up to 2.8 cm in greatest dimension. The cut surface of the subserosal, submucosal and intramural nodules is rome, firm to rubbery and displays whorled architecture. No areas of hemorrhage or necrosis are identified. The remaining myometrium is rome-pink and averages 3.2 cm in thickness. 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 B. Received in formalin labeled "left ovarian cyst wall," is a 1.6 x 0.7 x 0.2 cm rome roach, irregular portion of soft tissue, possibly consistent with a cyst wall. The specimen is submitted in toto in one cassette. 11/19/201611/19/2016
== END 2016-11-19 13:50 | disposition home or self-care (01) ==
LOC: JASUSAT 06:19 → JASU-SURG 06:19 → J3W 13:13 → JASUSAT 11-19 13:50
PROVIDERS: ATTEND Obstetrics & Gynecology
PROC: 0UTC4ZZ Resection of Cervix, Percutaneous Endoscopic Approach (ICD-10-PCS; 2016-11-18)
PROC: 8E0W4CZ Robotic Assisted Procedure of Trunk Region, Percutaneous Endoscopic Approach (ICD-10-PCS; 2016-11-18)
PROC: 0UB14ZZ Excision of Left Ovary, Percutaneous Endoscopic Approach (ICD-10-PCS; 2016-11-18)
PROC: 0UT94ZZ Resection of Uterus, Percutaneous Endoscopic Approach (ICD-10-PCS; principal; 2016-11-18 08:00)
DX: D25.0 Submucous leiomyoma of uterus (principal); N93.9 Abnormal uterine and vaginal bleeding, unspecified
CPT/HCPCS: 58570; 58662; S2900; 36415; 84702; 85025; 86850; 86900; 86901; 88305-TC; 88307-TC; 94010; 94760

== ENCOUNTER 2018-04-22 09:47 | Emergency (ER) | payer OTHER ==
[2018-04-22 09:59] VITALS: BP 163/83; PULSE 90; TEMP 98.9; BMI 32.9
--- NOTE | 2018-04-22 11:36 | PDOC ---
History of Present Illness - General Chief Complaint: Pain Stated Complaint: PAIN, ACUTE Time Seen by Provider: 04/22/18 10:06 History Source: Patient Exam Limitations: No Limitations - History of Present Illness Travel History: No Initial Comments: 04/22/18 11:35 47 yr female history of HTN with c/o 2 weeks left lower flank to side discomfort "soreness" worse with walking , also has loose stool decreased appetite no fever no chills no urinary complaints. pt states pain is lessened when she lies on her left side. Timing/Duration: reports: constant Quality: reports: mild Abdominal Pain Onset Location: reports: [facility] Past History - Past Medical History Allergies/Adverse Reactions: Allergies Allergy/AdvReac Type Severity Reaction Status Date / Time nitrofurantoin Allergy Severe Swelling Verified 04/22/18 09:51 [From Macrobid] Home Medications: Ambulatory Orders Lisinopril [Prinivil] 40 mg PO DAILY 07/19/15 Anemia: No Asthma: No Cancer: No Cardiac Disorders: No CVA: No COPD: No CHF: No Dementia: No Diabetes: Yes (gestational) GI Disorders: No Disorders: No HTN: Yes Hypercholesterolemia: No Liver Disease: No Seizures: No Thyroid Disease: No - Surgical History Abdominal Surgery: Yes (LAP BAND -2013) Appendectomy: No Cardiac Surgery: No Cholecystectomy: No GI Surgery: Yes (LAP BAND) Lung Surgery: No Neurologic Surgery: No Orthopedic Surgery: No - Reproductive History (#): 5 Para: 1 Spontaneous : 4 - Suicide/Smoking/Psychosocial Hx Smoking Status: Yes Smoking History: Current every day smoker Have you smoked in the past 12 months: No Number of Cigarettes Smoked Daily: 4 Information on smoking cessation initiated: No 'Breaking Loose' booklet given: 10/06/15 Hx Alcohol Use: No Drug/Substance Use Hx: No Substance Use Type: None Hx Substance Use Treatment: No *Physical Exam - Vital Signs Last Vital Signs Temp Pulse Resp BP Pulse Ox 98.9 F 90 16 163/83 99 04/22/18 09:52 04/22/18 09:52 04/22/18 09:52 04/22/18 09:52 04/22/18 09:52 - Physical Exam General Appearance: Yes: Nourished, Appropriately Dressed HEENT: positive: EOMI, BENITO, TMs Normal, Pharynx Normal Neck: positive: Supple. negative: Tender Respiratory/Chest: positive: Lungs Clear, Normal Breath Sounds. negative: Chest Tender Cardiovascular: positive: Regular Rhythm, Regular Rate Gastrointestinal/Abdominal: positive: Normal Bowel Sounds, Soft, Tenderness ( left flank area no lower quadrant tenderness, neg RLQ tenderness neg epigastric tenderness). negative: Tender Musculoskeletal: positive: Normal Inspection. negative: CVA Tenderness, CVA Tenderness (R), CVA Tenderness (L), Decreased Range of Motion, Muscle Spasm, Vertebral Tenderness Extremity: positive: Normal Capillary Refill, Normal Inspection, Normal Range of Motion. negative: Tender Integumentary: positive: Normal Color, Dry, Warm Neurologic: positive: Fully Oriented, Alert, Normal Mood/Affect, Normal Response , Motor Strength 11/05 ED Treatment Course - LABORATORY CBC & Chemistry Diagram: 04/22/18 11:00 04/22/18 11:00 - RADIOLOGY Radiology Studies Ordered: Category Date Time Status CHEST PA & LAT [RAD] Stat Radiology 04/22/18 11:17 Ordered Medical Decision Making - Medical Decision Making 04/22/18 12:49 cc: left sided flank pain to mid abdomen non tender to palpation cough for one week non productive no fever no chills, 2weeks pain worse with movement reproduced with movement and to touch pain when lying down of the side will check labs, UA, CXR 04/22/18 12:53 pt feels better after toradol, no fever asymptomatic at discharge, copies given of labs and xray, pt states she has appointment tuesday with her PMD. *DC/Admit/Observation/Transfer Diagnosis at time of Disposition: Flank pain - Discharge Dispostion Disposition: HOME Condition at time of disposition: Good - Referrals Referrals: Neville Eid MD [Primary Care Provider] - - Patient Instructions Additional Instructions: follow with your doctor on TUESDAY call Tuesday to set up appointment bring copies of your labs reports and xray with you, make sure you follow up on the xray results for pain: take tylenol bland diet as tolerated jello, ice pops, toast, soup dry crackers if any worsening symptoms return to the ER - Post Discharge Activity
[2018-04-22 11:41] LABS: BASO % 0.3 % (0-2.0); EOS % 2.2 % (0-4.5); HCG,QUALITATIVE URINE Negative; HEMATOCRIT 43.9 % (32.4-45.2); HEMOGLOBIN 13.6 GM/dL (10.7-15.3); LYMPH % 26.6 % (8-40); MCHC 31.1 g/dl (32.0-36.0); MEAN CELL VOLUME 80.4 fl (80-96); MEAN PLT VOLUME 9.3 fl (7.5-11.1); MONO % 6.4 % (3.8-10.2); NEUT % 64.5 % (42.8-82.8); PLATELET COUNT 254 K/MM3 (134-434); RBC 5.46 M/mm3 (3.60-5.2); RDW 14.9 % (11.6-15.6); WHITE BLOOD COUNT 7.1 K/mm3 (4.0-10.0)
[2018-04-22 11:45] LABS: ALBUMIN 3.5 g/dl (3.4-5.0); ALK PHOS 76 U/L (45-117); ANION GAP 5 MMOL/L (8-16); BILIRUBIN,TOTAL 0.5 mg/dL (0.2-1); BLOOD UREA NITROGEN 12 mg/dL (7-18); CALCIUM 8.6 mg/dL (8.5-10.1); CHLORIDE 107 mmol/L (98-107); CO2 28 mmol/L (21-32); CREATININE 0.7 mg/dL (0.55-1.3); GLUCOSE,RANDOM 166 mg/dL (74-106); POTASSIUM 4.6 mmol/L (3.5-5.1); SGOT/AST 18 U/L (15-37); SGPT/ALT 31 U/L (13-61); SODIUM 140 mmol/L (136-145); TOT PROT 7.1 g/dl (6.4-8.2)
[2018-04-22] MEDS ORDERED: KETOROLAC TROMETHAMINE 60 MG/2 ML VIAL IM ONE (12:00)
[2018-04-22 12:07] LABS: URINE APPEARANCE CLEAR; URINE BILIRUBIN NEGATIVE (<2.0 mg/dL); URINE COLOR YELLOW; URINE GLUCOSE (UA) NEGATIVE (NEGATIVE); URINE KETONE NEGATIVE (NEGATIVE); URINE LEUK ESTERASE NEGATIVE (NEGATIVE); URINE NITRITE NEGATIVE (NEGATIVE); URINE PROTEIN 1+ (NEGATIVE)
[2018-04-22] MEDS ORDERED: KETOROLAC TROMETHAMINE 60 MG/2 ML VIAL ONE (12:08)
[2018-04-22 12:24] LABS: EPI CELLS RARE /HPF (FEW); URINE MUCUS MODERATE
== END 2018-04-22 13:01 | disposition home or self-care (01) ==
LOC: JERFT 09:47 → JER 09:47 → JERFT 13:01
PROC: 3E0233Z Introduction of Anti-inflammatory into Muscle, Percutaneous Approach (ICD-10-PCS; principal; 2018-04-22)
DX: R10.32 Left lower quadrant pain (principal); I10 Essential (primary) hypertension; Z86.32 Personal history of gestational diabetes; F17.210 Nicotine dependence, cigarettes, uncomplicated; Z98.84 Bariatric surgery status
CPT/HCPCS: 36415; 71046-TC-FY; 80053; 81003; 81015; 84703; 85025; 99281-25

== ENCOUNTER 2020-12-09 12:34 | Emergency (ER) | payer OTHER ==
[2020-12-09 12:50] VITALS: BP 144/86; PULSE 71; TEMP 98.7; BMI 34.4
== END 2020-12-09 13:43 | disposition home or self-care (01) ==
LOC: JERFT 12:34
DX: S92.412A Displaced fracture of proximal phalanx of left great toe, initial encounter for closed fracture (principal)
CPT/HCPCS: 73630-TC-LT; 73660-TC-LT-FY; 99284-25

== ENCOUNTER 2022-01-17 09:17 | Emergency (ER) | payer OTHER ==
[2022-01-17 09:23] VITALS: BP 160/71; PULSE 76; TEMP 98.6; BMI 32.9
== END 2022-01-17 10:09 | disposition home or self-care (01) ==
LOC: JERFT 09:17
DX: N76.4 Abscess of vulva (principal)
CPT/HCPCS: 99283-25

== ENCOUNTER 2022-07-25 13:05 | Emergency (ER) | payer OTHER ==
[2022-07-25 13:15] VITALS: BMI 38.4
[2022-07-25] MEDS ORDERED: FAMOTIDINE 20 MG TABLET PO ONE (14:17)
[2022-07-25] MEDS ORDERED: SODIUM CHLORIDE 0.9% 500 ML INFUS.BAG IV ONE (14:17)
[2022-07-25] MEDS ORDERED: MAG HYDROX/AL HYDROX/SIMETH -MYLANTA- ORAL SUSPENSION PO ONE (14:17)
[2022-07-25] MEDS ORDERED: ACETAMINOPHEN 1000 MG/100 ML BAG IVPB ONE (14:17)
[2022-07-25] MEDS ORDERED: ACETAMINOPHEN INJECTION 100 ML IVPB ONE (14:52)
[2022-07-25] MEDS ORDERED: MAG HYDROX/AL HYDROX/SIMETH 30 ML UNIT-DOSE CUP ONE (14:52)
[2022-07-25] MEDS ORDERED: FAMOTIDINE 20 MG TABLET ONE (14:52)
[2022-07-25 15:10] LABS: BASO % 0.6 % (0-2.0); EOS % 1.8 % (0-4.5); HEMATOCRIT 40.2 % (32.4-45.2); LYMPH % 30.2 % (8-40); MCH 25.7 pg (25.7-33.7); MCHC 32.2 g/dl (32.0-36.0); MEAN CELL VOLUME 79.7 fl (80-96); NEUT % 61.4 % (42.8-82.8); RBC 5.05 M/mm3 (3.60-5.2); RDW 14.4 % (11.6-15.6); WHITE BLOOD COUNT 7.8 K/mm3 (4.0-10.0)
[2022-07-25 15:12] LABS: EPI CELLS 14 /uL (0-25.1); HYALINE CASTS 1 /uL (0-3.1); PH,URINE 5.5 (5.0-8.0); URINE APPEARANCE CLEAR; URINE BACTERIA 242 /uL (0-1359); URINE BILIRUBIN NEGATIVE (NEGATIVE); URINE COLOR YELLOW; URINE GLUCOSE (UA) 1+ (NEGATIVE); URINE KETONE TRACE (NEGATIVE); URINE LEUK ESTERASE NEGATIVE (NEGATIVE); URINE NITRITE NEGATIVE (NEGATIVE); URINE PROTEIN 1+ (NEGATIVE); URINE RBC 18 /uL (0-23.9); URINE UROBILINOGEN 0.2 mg/dL (0.2-1.0); URINE WBC 8 /uL (0-25.8)
[2022-07-25 15:17] LABS: ACTIVATED PTT 20.8 SECONDS (25.2-36.5); INR 0.98 (0.83-1.09); PROTHROMBIN TIME (PATIENT) 11.3 SEC (9.7-13.0)
[2022-07-25 15:25] LABS: ALBUMIN 3.6 g/dl (3.4-5.0); CALCIUM 9.8 mg/dL (8.5-10.1)
[2022-07-25 15:27] LABS: MAGNESIUM 1.9 mg/dL (1.8-2.4); MEAN PLT VOLUME 9.8 fl (7.5-11.1); PLATELET COUNT 263 10^3/uL (134-434)
[2022-07-25 15:29] LABS: BILIRUBIN,TOTAL 0.4 mg/dL (0.2-1)
[2022-07-25 15:30] LABS: TOT PROT 7.8 g/dl (6.4-8.2)
[2022-07-25 20:57] VITALS: BP 144/63; PULSE 66; RESP 18; TEMP 98.2
== END 2022-07-25 21:18 | disposition home or self-care (01) ==
LOC: JER 13:05
PROC: 3E0333Z Introduction of Anti-inflammatory into Peripheral Vein, Percutaneous Approach (ICD-10-PCS; principal; 2022-07-25)
DX: R10.11 Right upper quadrant pain (principal)
CPT/HCPCS: 0241U-QW; 36415; 74177-TC; 76705-TC; 80053; 81003; 83690; 83735; 84702; 85025; 85610; 85730; 86850; 86900; 86901; 87086; 99285-25; Q9967

== ENCOUNTER 2023-12-22 10:08 | Emergency (ER) | payer OTHER ==
[2023-12-22 10:31] VITALS: BMI 34.7
[2023-12-22 11:48] LABS: BASO % 0.6 % (0-2.0); EOS % 0.8 % (0-4.5); HEMATOCRIT 43.9 % (32.4-45.2); HEMOGLOBIN 13.8 GM/dL (10.7-15.3); LYMPH % 25.8 % (8-40); MCH 25.2 pg (25.7-33.7); MCHC 31.4 g/dl (32.0-36.0); MEAN CELL VOLUME 80.3 fl (80-96); MEAN PLT VOLUME 9.9 fl (7.5-11.1); MONO % 6.8 % (3.8-10.2); PLATELET COUNT 224 10^3/uL (134-434); RBC 5.46 M/mm3 (3.60-5.2); RDW 13.6 % (11.6-15.6); WHITE BLOOD COUNT 6.9 K/mm3 (4.0-10.0)
[2023-12-22 11:50] LABS: URINE APPEARANCE Clear; URINE BILIRUBIN Negative (NEGATIVE); URINE COLOR Yellow; URINE GLUCOSE (UA) 2+ (NEGATIVE); URINE KETONE Negative (NEGATIVE); URINE LEUK ESTERASE Negative (NEGATIVE); URINE NITRITE Negative (NEGATIVE); URINE PROTEIN Negative (NEGATIVE); URINE UROBILINOGEN 0.2 mg/dL (0.2-1.0)
[2023-12-22 11:52] LABS: EPI CELLS 5 /uL (0-25.1); HYALINE CASTS 0 /uL (0-3.1); URINE BACTERIA 4206 /uL (0-1359); URINE RBC 8 /uL (0-23.9); URINE WBC 18 /uL (0-25.8)
[2023-12-22 11:58] LABS: INR 0.98 (0.83-1.09); PROTHROMBIN TIME (PATIENT) 11.3 SEC (9.7-13.0)
[2023-12-22 12:15] LABS: CHLORIDE 97 mmol/L (98-107); POTASSIUM 5.4 mmol/L (3.5-5.1); SODIUM 132 mmol/L (136-145)
[2023-12-22 12:17] LABS: ANION GAP 6 mmol/L (4-13); CALCIUM 9.8 mg/dL (8.5-10.1); CO2 28 mmol/L (21-32)
[2023-12-22 12:18] LABS: ALBUMIN 3.6 g/dl (3.4-5.0)
[2023-12-22 12:20] LABS: CREATININE 1.1 mg/dL (0.55-1.3); SGOT/AST 34 U/L (15-37)
[2023-12-22 12:21] LABS: SGPT/ALT 35 U/L (13-61)
[2023-12-22 12:22] LABS: BILIRUBIN,TOTAL 0.5 mg/dL (0.2-1)
[2023-12-22 12:23] LABS: ALK PHOS 91 U/L (45-117); TOT PROT 7.6 g/dl (6.4-8.2)
[2023-12-22 12:24] LABS: GLUCOSE,RANDOM 488 mg/dL (74-106)
[2023-12-22] MEDS: SODIUM CHLORIDE 0.9% 500 ML INFUS.BAG IV ONE (12:32)
[2023-12-22] MEDS: SODIUM CHLORIDE 1,000 ML IV STA (14:05)
[2023-12-22 15:07] VITALS: BP 132/66; PULSE 55; RESP 20; TEMP 98
== END 2023-12-22 15:31 | disposition home or self-care (01) ==
LOC: JER 10:08
PROC: 3E0337Z Introduction of Electrolytic and Water Balance Substance into Peripheral Vein, Percutaneous Approach (ICD-10-PCS; principal; 2023-12-22)
DX: K62.5 Hemorrhage of anus and rectum (principal); N39.0 Urinary tract infection, site not specified; R10.11 Right upper quadrant pain; R10.13 Epigastric pain; R10.2 Pelvic and perineal pain; R10.30 Lower abdominal pain, unspecified
CPT/HCPCS: 36415; 74177-TC; 80053; 81003; 82272; 85025; 85610; 85730; 87086; 87186; 99285-25; Q9967

== ENCOUNTER 2024-04-18 04:11 | Day surgery (SDC) | payer OTHER ==
[2024-04-18 09:58] VITALS: BMI 33.6
[2024-04-18 13:15] VITALS: RESP 18; TEMP 98.1
[2024-04-18 13:45] VITALS: BP 127/92; PULSE 65
== END 2024-04-18 13:45 | disposition home or self-care (01) ==
LOC: JASU-ENDO 04:11
PROVIDERS: ATTEND Internal Medicine Gastroenterology
PROC: 0DBN8ZX Excision of Sigmoid Colon, Via Natural or Artificial Opening Endoscopic, Diagnostic (ICD-10-PCS; 2024-04-18)
PROC: 0DB98ZX Excision of Duodenum, Via Natural or Artificial Opening Endoscopic, Diagnostic (ICD-10-PCS; 2024-04-18)
PROC: 0DB68ZX Excision of Stomach, Via Natural or Artificial Opening Endoscopic, Diagnostic (ICD-10-PCS; 2024-04-18)
PROC: 0DB48ZX Excision of Esophagogastric Junction, Via Natural or Artificial Opening Endoscopic, Diagnostic (ICD-10-PCS; 2024-04-18)
PROC: 0DBH8ZX Excision of Cecum, Via Natural or Artificial Opening Endoscopic, Diagnostic (ICD-10-PCS; principal; 2024-04-18 11:00)
DX: Z12.11 Encounter for screening for malignant neoplasm of colon (principal); D12.0 Benign neoplasm of cecum; K63.5 Polyp of colon; K57.30 Diverticulosis of large intestine without perforation or abscess without bleeding; K29.70 Gastritis, unspecified, without bleeding; B96.81 Helicobacter pylori [H. pylori] as the cause of diseases classified elsewhere; K21.00 Gastro-esophageal reflux disease with esophagitis, without bleeding; Z86.0100 Personal history of colon polyps, unspecified
CPT/HCPCS: 82962; 88305-TC; 88342-TC